=== PATIENT | female | born 1960 | race Caucasian/White ===

== ENCOUNTER 2021-04-16 19:09 | Emergency (ER) | payer OTHER, SELFPAY ==
--- NOTE | 2021-04-16 | ECG_ITS ---
Test Reason : CHEST PAIN Blood Pressure : / mmHG Vent. Rate : 075 BPM Atrial Rate : 075 BPM P-R Int : 142 ms QRS Dur : 066 ms QT Int : 410 ms P-R-T Axes : 039 -33 035 degrees QTc Int : 457 ms Normal sinus rhythm Left axis deviation Abnormal ECG No previous ECGs available Referred By: Angel Mclaughlin Electronically Signed By:Donnie Hauser
--- NOTE | ~2021-04-16 | XR_ITS ---
EXAMINATION: PORTABLE CHEST 1 VIEW CLINICAL INFORMATION: cp . COMPARISON: Prior 06/10/2013 chest x-ray. TECHNIQUE: Portable frontal view of the chest was obtained. FINDINGS: The lungs are well expanded. No focal infiltrate, effusion, edema, or pneumothorax. Dense nodular opacification along the lateral aspect the left midlung is noted. This was commented on in the prior 2013 report and overall does not appear to significantly changed since that time. Etiology is uncertain however. Cardiac and mediastinal silhouettes are within normal limits for technique. No acute bony abnormality seen. XR/XR chest 1V IMPRESSION: No evidence of acute disease. Calcified nodular opacity overlying the left lateral mid chest overall not significantly changed from 2014.
--- NOTE | 2021-04-16 19:26 | ED.GENADULT ---
HPI - General Adult General Chief complaint: Chest Pain Stated complaint: hypertension and chest pain Time Seen by Provider: 04/16/21 19:24 Source: patient Mode of arrival: ambulatory Limitations: no limitations History of Present Illness HPI narrative: [facility] came [facility] with history of HIV diabetes hypertension high cholesterol was there for admission complain of chest pain for last 2- 3 days with pressure was 157/98 blood sugar was 280 increased anxiety blood chest pain is localized to left costochondral area tender to touch Related Data Allergies Allergy/AdvReac Type Severity Reaction Status Date / Time morphine AdvReac Intermediate Unknown Verified 04/16/21 19:47 acetaminophen [From Percocet] AdvReac Mild Unknown Verified 04/16/21 19:47 oxycodone [From Percocet] AdvReac Mild Unknown Verified 04/16/21 19:47 Review of Systems Review of Systems: Yes all other systems are reviewed and are negative [facility] Past Medical History Medical History (Updated 04/16/21 @ 23:33 by Angel Mclaughlin MD) Depression Diabetes mellitus HIV (human immunodeficiency virus infection) Hypertension Social History Social History Alcohol intake: never Use of substances other than those prescribed or required for medical reasons: No Advance Directives: No Advance Directives Information Provided: Yes Physical Exam Vital Signs: Vital Signs: Last Vital Signs Temp 97.6 F 04/16/21 19:51 Pulse 88 04/16/21 22:00 Resp 17 04/16/21 22:00 BP 158/93 H 04/16/21 22:00 Pulse Ox 96 04/16/21 22:00 BMI result Body Mass Index 26.2 Appearance: Alert. Oriented X3. No acute distress. Eyes: No pallor icterus ENT: Pharynx normal. Oral Mucosa moist Neck: Normal inspection. Neck supple. CVS: Normal heart rate and rhythm. Pulses normal. No murmur or gallop local tenderness left 2nd toe costal space Respiratory: No respiratory distress. Equal air entry bilateral, no wheezing/rales/rhonchi Abdomen: Soft and nontender. Bowel sounds are present, no mass palpable, no CVA tenderness Skin: Skin warm and dry. Normal skin color. Normal skin turgor. Extremities: No lower extremity edema. No calf tenderness Neuro: Oriented X 3. Medical Decision Making MDM Narrative Medical decision making narrative: Patient atypical chest pain without any EKG changes local tenderness in left 2nd dorsal surface resin troponin negative discharge patient home patient does have anxiety and started crying in the ED give some Ativan Lab Data Lab results reviewed: Yes I reviewed the patient's lab results. Result diagrams: 04/16/21 20:38 04/16/21 21:50 Labs: Lab Results 04/16/21 04/16/21 04/16/21 Range/Units 20:38 20:38 21:50 WBC 5.1 (4.8-10.8) X10*3/uL RBC 4.42 (4.20-5.50) X10*6/uL Hgb 13.5 (12.0-16.0) g/dl Hct 40.4 (37.0-47.0) % MCV 91.4 (80.0-98.0) fL MCH 30.5 (27.0-33.0) pg MCHC 33.4 (31.0-35.0) g/dl RDW 13.6 (11.0-16.0) % Plt Count 216 (160-400) X10*3/uL MPV 9.4 (9.4-12.3) fL Immature Gran % (Auto) 0.2 (0.0-0.4) % Neut % (Auto) 48.2 (45-73) % Lymph % (Auto) 41.4 H (20-40) % [place] % (Auto) 8.6 (2-11) % Eos % (Auto) 1.2 (0-4) % Baso % (Auto) 0.4 (0-2) % Lymph # (Auto) 2.1 (1.2-4.9) X10*3/uL [place] # (Auto) 0.4 (0.1-1.2) X10*3/uL Eos # (Auto) 0.1 (0.0-0.4) X10*3/uL Baso # (Auto) 0.0 (0.0-0.2) X10*3/uL Abs Immat Gran (auto) 0.01 (0.00-0.03) X10*3/uL Absolute Neuts (auto) 2.5 (2.0-8.3) x10*3/uL Absolute Nucleated RBC 0.000 (0.0-0.012) X10*3/uL Nucleated RBC % (auto) 0.0 (0.0-0.2) /100WBC Sodium (135-145) mmol/L Potassium (3.3-5.1) mmol/L Chloride (96-108) mmol/L Carbon Dioxide (22-29) mmol/L Anion Gap (12-20) BUN (9-16) mg/dL Creatinine (0.5-1.4) mg/dL Estim Creat Clear Calc Estimated GFR Random Glucose (60-115) mg/dL Calcium (8.4-10.2) mg/dL Total Bilirubin (0.0-1.0) mg/dL AST (5-31) U/L ALT (0-31) U/L Alkaline Phosphatase (39-117) U/L Troponin I High Sens 13.5 (<3.5-17.0) ng/L Total Protein (6.5-8.0) g/dL Albumin (3.5-5.0) g/dL COVID-19 (FREDI) Negative (Negative) COVID-19 Clin Com See Note 04/16/21 Range/Units 21:50 WBC (4.8-10.8) X10*3/uL RBC (4.20-5.50) X10*6/uL Hgb (12.0-16.0) g/dl Hct (37.0-47.0) % MCV (80.0-98.0) fL MCH (27.0-33.0) pg MCHC (31.0-35.0) g/dl RDW (11.0-16.0) % Plt Count (160-400) X10*3/uL MPV (9.4-12.3) fL Immature Gran % (Auto) (0.0-0.4) % Neut % (Auto) (45-73) % Lymph % (Auto) (20-40) % [place] % (Auto) (2-11) % Eos % (Auto) (0-4) % Baso % (Auto) (0-2) % Lymph # (Auto) (1.2-4.9) X10*3/uL [place] # (Auto) (0.1-1.2) X10*3/uL Eos # (Auto) (0.0-0.4) X10*3/uL Baso # (Auto) (0.0-0.2) X10*3/uL Abs Immat Gran (auto) (0.00-0.03) X10*3/uL Absolute Neuts (auto) (2.0-8.3) x10*3/uL Absolute Nucleated RBC (0.0-0.012) X10*3/uL Nucleated RBC % (auto) (0.0-0.2) /100WBC Sodium 139 (135-145) mmol/L Potassium 3.9 (3.3-5.1) mmol/L Chloride 105 (96-108) mmol/L Carbon Dioxide 26 (22-29) mmol/L Anion Gap 12 (12-20) BUN 9 (9-16) mg/dL Creatinine 1.20 (0.5-1.4) mg/dL Estim Creat Clear Calc 38.9 Estimated GFR 46 Random Glucose 226 H (60-115) mg/dL Calcium 9.8 (8.4-10.2) mg/dL Total Bilirubin 0.6 (0.0-1.0) mg/dL AST 24 (5-31) U/L ALT 23 (0-31) U/L Alkaline Phosphatase 118 H (39-117) U/L Troponin I High Sens (<3.5-17.0) ng/L Total Protein 7.2 (6.5-8.0) g/dL Albumin 4.1 (3.5-5.0) g/dL COVID-19 (FREDI) (Negative) COVID-19 Clin Com ECG Data Attestation: I personally reviewed and interpreted this ECG as follows: Interpretation: Normal sinus rhythm heart rate 75 beats per minute left axis deviation normal intervals no acute ST wave changes impression no acute ischemia Discharge Plan Discharge Clinical Impression: Atypical chest pain, Anxiety Patient Disposition: Home, Self-Care Instructions: Chest Pain (DC), Anxiety (ED) Additional Instructions: Follow up your primary care doctor Take your medications as prescribed Interventions: ED Discharge Assessment Last Done: 04/17/21 00:11 Discharge Date/Time: 04/17/21 00:11
[2021-04-16 19:29] VITALS: BP 177/83; PULSE 84; RESP 16; TEMP 36.6; O2SAT 98; BMI 26.2
[2021-04-16 19:51] VITALS: BP 165/85; PULSE 86; RESP 15; TEMP 36.4; O2SAT 98
[2021-04-16 20:46] LABS: MANUAL DIFF FLAG NO
[2021-04-16 20:52] LABS: Basophils Percent Auto 0.4 % (0-2); Eosinophils Absolute Auto 0.1 X10*3/uL (0.0-0.4); Eosinophils Percent Auto 1.2 % (0-4); Hematocrit 40.4 % (37.0-47.0); Hemoglobin 13.5 g/dl (12.0-16.0); Imm Gran Abs Auto 0.01 X10*3/uL (0.00-0.03); Imm Gran Pct Auto 0.2 % (0.0-0.4); Lymphocytes Absolute Auto 2.1 X10*3/uL (1.2-4.9); Lymphocytes Percent Auto 41.4 % (20-40); Mean Corpuscular HGB Conc 33.4 g/dl (31.0-35.0); Mean Corpuscular Hemoglobin 30.5 pg (27.0-33.0); Mean Corpuscular Volume 91.4 fL (80.0-98.0); Mean Platelet Volume 9.4 fL (9.4-12.3); Monocytes Absolute Auto 0.4 X10*3/uL (0.1-1.2); Monocytes Percent Auto 8.6 % (2-11); Neutrophils Absolute Auto 2.5 x10*3/uL (2.0-8.3); Neutrophils Percent Auto 48.2 % (45-73); Platelet Count 216 X10*3/uL (160-400); Red Blood Count 4.42 X10*6/uL (4.20-5.50); Red Cell Distribution Width 13.6 % (11.0-16.0); White Blood Count 5.1 X10*3/uL (4.8-10.8)
[2021-04-16 21:04] LABS: COVID-19 Test Negative (Negative)
--- NOTE | 2021-04-16 21:09 | PC.NURSE ---
Addendum entered by Dong Michael RN 04/17/21 00:08: Throughout her ER visit the pt has remained calm, cooperative and pain free. At approximately 2245 he c/o severe left sided chest pain. At that time she was tearful and continuously saying my god, my god, my god. Rey CHAU aware, Toradol and Ativan IVP ordered and administered and within 15 minutes pt admitted to complete relief of the pain. We monitored her for 30 more minutes or so and she was D/C'd. Rey CHAU aware of continued auditory hallucinations.Pt , again, senies SI and has family coming to ER to pick her up. I assisted her to the waiting room. Original Note: I assumed care of this pt upon their arrival to bed 11 from EMS stretcher. The pt presents for evaluation of chest pain and high blood pressure, sent from a [facility] clinic where she presented for evaluation of increased auditory hallucinations that were commanding her to hurt herself, per the paperwork sent from [facility] and EMS. However, on arrival to ED she denies SI, denies HI, she is calm and cooperative, makes eye contact with RN and is primarily lithuanian speaking. Sebastian, emergency medicine medical director, came to bedside for my initial eval of pt. Respirations non-labored, RR WNL, no cyanosis, room air sat's 95% or better. She admits to 5/10 L sided chest pain/ BOP 170's/80's on arrival - she denies JUARES or visual changes. She ambulated to bathroom independently and with steady gait with one stand by assist. NSR on bedside monitor. Labs obtained/pending. Will continue to monitor.
[2021-04-16 22:00] VITALS: BP 158/93; PULSE 88; RESP 17; O2SAT 96
[2021-04-16 22:09] LABS: Alanine Aminotransferase 23 U/L (0-31); Albumin Level 4.1 g/dL (3.5-5.0); Alkaline Phosphatase 118 U/L (39-117); Anion Gap 12 (12-20); Aspartate Amino Transferase 24 U/L (5-31); Bilirubin Total 0.6 mg/dL (0.0-1.0); Blood Urea Nitrogen 9 mg/dL (9-16); Calcium 9.8 mg/dL (8.4-10.2); Carbon Dioxide 26 mmol/L (22-29); Chloride 105 mmol/L (96-108); Creatinine Clr Calc Pharmacy 38.9; Estimated Glomerular Filt Rate 46; Glucose Random 226 mg/dL (60-115); Potassium 3.9 mmol/L (3.3-5.1); Sodium 139 mmol/L (135-145); Total Protein 7.2 g/dL (6.5-8.0)
[2021-04-16 22:15] LABS: Troponin-I High Sensitivity 13.5 ng/L (<3.5-17.0)
[2021-04-16] MEDS: LORazepam 2 MG/ML VIAL 0.5 MG IVPUSH (23:42)
[2021-04-16] MEDS: Ketorolac Tromethamine 30 MG/ML VIAL 15 MG IVPUSH (23:42)
== END 2021-04-17 00:11 | disposition home or self-care (01) ==
PROVIDERS: Emergency Provider Internal Medicine; PCP Nurse Practitioner
DX: R07.89 Other chest pain (principal); F41.9 Anxiety disorder, unspecified; Z20.822 Contact with and (suspected) exposure to COVID-19; E11.9 Type 2 diabetes mellitus without complications; I10 Essential (primary) hypertension; B20 Human immunodeficiency virus [HIV] disease
CPT/HCPCS: 36415; 71045; 80053; 84484; 85025; 87635; 93005; 96374; 96375; 99284; 99285; J1885; J2060